=== PATIENT | male | born 1965 | race Two or more races ===

== ENCOUNTER 2022-01-18 17:59 | Emergency (ER) | payer OTHER ==
[~2022-01-18] VITALS: Ht 172.7 cm; Wt 90.7 kg
[2022-01-18] MEDS ORDERED: EC-NAPROSYN375 MG (18:08)
[2022-01-18] MEDS ORDERED: ZESTRIL10 M1 (18:08)
[2022-01-18] MEDS ORDERED: GRALISE600 MG (18:08)
[2022-01-18] MEDS ORDERED: GLUMETZA500 MG (18:08)
[2022-01-18] MEDS ORDERED: NORFLEX100MG (18:08)
== END 2022-01-18 19:16 | disposition home or self-care (01) ==
LOC: ER 17:59
DX: M54.42 Lumbago with sciatica, left side (principal)